=== PATIENT | female | born 1945 | race African-American/Black ===

== ENCOUNTER 2024-02-21 09:19 | Inpatient (IN) | payer MEDICARE, MEDICAID ==
[~2024-02-21] VITALS: Ht 160 cm; Wt 72.6 kg
[2024-02-21] VITALS (12 sets, daily range): BP systolic 92–195; BP diastolic 47–95; PULSE 79–99; RESP 16–32; TEMP 98
[2024-02-21] MEDS ORDERED: NITROGLYCERIN 50MG PREMIX 250 ML IV ONE (09:30)
[2024-02-21] MEDS: FUROSEMIDE 40MG/4ML VIAL IV ONE (09:45)
[2024-02-21] MEDS: NITROGLYCERIN 50MG PREMIX 250 ML IV SCH (09:45)
[2024-02-21 10:29] LABS: CHLORIDE 109 mEq/L (98-107); POTASSIUM 3.4 mEq/L (3.5-5.1); SODIUM 142 mEq/L (136-145)
[2024-02-21 10:30] LABS: CALCIUM 9.1 mg/dL (8.7-10.4); CARBON DIOXIDE 24 mEq/L (21-32)
[2024-02-21 10:35] LABS: CREATININE 0.9 mg/dL (0.6-1.0); GLUCOSE 235 mg/dL (70-105); UREA NITROGEN BLOOD 16 mg/dL (9-23)
[2024-02-21 10:37] LABS: ALANINE AMINOTRANSFERASE 26 IU/L (10-49); ALBUMIN 4.5 g/dL (3.2-4.8); ASPARTATE AMINOTRANSFERASE 30 IU/L (<34); BILIRUBIN TOTAL 0.9 mg/dL (0.1-1.0); PROTEIN TOTAL 7.5 g/dL (6.0-8.3)
[2024-02-21 10:43] LABS: TROPONIN I HIGH SENSITIVITY 46 ng/L (3.0-34)
[2024-02-21 10:51] LABS: BASOPHILS % 0.5 % (0.0-2.0); EOSINOPHILS % 1.6 % (0.0-5.0); HEMATOCRIT. 40.1 % (36.0-48.0); HEMOGLOBIN. 12.7 g/dL (12.0-16.0); LYMPHOCYTES % 32.3 % (20.0-50.0); MEAN CORPUSCULAR HEMOGLOBIN 29.5 pg (28.0-32.0); MEAN CORPUSCULAR HGB CONC 31.7 g/dL (31.0-37.0); MEAN CORPUSCULAR VOLUME 92.8 fL (81.0-99.0); MONOCYTES % 5.6 % (2.0-8.0); RED BLOOD CELL COUNT 4.32 mill/uL (4.2-5.4); RED CELL DISTRIBUTION WIDTH 17.3 % (11.6-14.6); WHITE BLOOD COUNT 10.3 x1000/uL (4.5-11.0)
[2024-02-21 10:54] LABS: DIFFERENTIAL COMMENT 1
[2024-02-21] MEDS: LOSARTAN 25 MG TABLET PO SCH (11:15)
[2024-02-21] MEDS: ASPIRIN 81MG TABLET PO SCH (11:15)
[2024-02-21] MEDS: KCL 20MEQ/100ML PREMIX 100 ML IV ONE (11:17)
[2024-02-21] MEDS: FUROSEMIDE 40MG/4ML VIAL IVP SCH ×2 (11:21→13:17)
[2024-02-21 12:57] LABS: TROPONIN I HIGH SENSITIVITY 94 ng/L (3.0-34)
[2024-02-21] MEDS: ISOSORBIDE DINITRATE 20MG TABLET PO SCH (13:32)
[2024-02-21] MEDS: AMLODIPINE 5MG TABLET PO SCH (13:32)
[2024-02-21] MEDS: HYDRALAZINE HCL 25MG TABLET PO SCH (14:45)
[2024-02-21] MEDS: LOSARTAN 50 MG TABLET PO NR (14:47)
[2024-02-21 15:33] LABS: THYROID STIMULATING HORMONE 1.99 uIU/mL (0.55-4.78)
[2024-02-21] MEDS ORDERED: METF-415 MT (21:39)
[2024-02-21] MEDS ORDERED: FURO-151 MT (21:39)
[2024-02-21] MEDS: ATORVASTATIN CALCIUM 40MG TABLET PO SCH (21:41)
[2024-02-21] MEDS: HYDRALAZINE 20MG/ML VIAL IV PRN (21:42)
[2024-02-21] MEDS: ONDANSETRON HCL 4MG/2ML INJ IV PRN (22:28)
[2024-02-21] MEDS ORDERED: ACETAMINOPHEN 325MG TABLET PO PRN (22:30)
[2024-02-22] VITALS (27 sets, daily range): BP systolic 100–163; BP diastolic 38–74; PULSE 73–100; RESP 10–26; TEMP 97.1–98.4
[2024-02-22 05:06] LABS: CHLORIDE 107 mEq/L (98-107); POTASSIUM 3.4 mEq/L (3.5-5.1); SODIUM 144 mEq/L (136-145)
[2024-02-22 05:07] LABS: CALCIUM 9.4 mg/dL (8.7-10.4)
[2024-02-22 05:12] LABS: CREATININE 0.9 mg/dL (0.6-1.0)
[2024-02-22 05:20] LABS: HEMATOCRIT. 39.4 % (36.0-48.0); MEAN CORPUSCULAR HEMOGLOBIN 29.9 pg (28.0-32.0); MEAN CORPUSCULAR HGB CONC 33.1 g/dL (31.0-37.0); MEAN CORPUSCULAR VOLUME 90.3 fL (81.0-99.0); RED BLOOD CELL COUNT 4.36 mill/uL (4.2-5.4); RED CELL DISTRIBUTION WIDTH 16.3 % (11.6-14.6); WHITE BLOOD COUNT 9.5 x1000/uL (4.5-11.0)
[2024-02-22 05:32] LABS: DIFFERENTIAL COMMENT 1
[2024-02-22] MEDS ORDERED: HYDRALAZINE 20MG/ML VIAL IV PRN (06:30)
[2024-02-22] MEDS: POTASSIUM CHLORIDE 20MEQ TABLET SR PO NR (06:41)
[2024-02-22 08:27] LABS: CARBON DIOXIDE 26 mEq/L (21-32)
[2024-02-22 08:32] LABS: GLUCOSE 137 mg/dL (70-105)
[2024-02-22 08:33] LABS: UREA NITROGEN BLOOD 18 mg/dL (9-23)
[2024-02-22] MEDS: PANTOPRAZOLE SODIUM 40 MG/VIAL IV SCH (08:39)
[2024-02-22] MEDS: LOSARTAN 50 MG TABLET PO SCH (08:41)
[2024-02-22] MEDS: AMLODIPINE 10MG TABLET PO SCH (08:41)
[2024-02-22 10:37] LABS: MEAN PLATELET VOLUME 11.4 fl (7.4-10.4); PLATELET 140 x1000/uL (130-400)
[2024-02-22] MEDS ORDERED: DEXTROSE 50% WATER 50ML SYRINGE IV PRN (11:45)
[2024-02-22] MEDS: INSULIN LISPRO 100 UNITS/ML SUBCUT SCH (12:30)
[2024-02-22] MEDS: BLOOD SUGAR DIAGNOSTIC STRIP TEST SCH (12:30)
[2024-02-22 12:44] LABS: CLARITY URINE CLEAR (CLEAR); COLOR URINE YELLOW (YELLOW); GLUCOSE URINE NEGATIVE (NEGATIVE); KETONES URINE NEGATIVE (NEGATIVE); LEUKOCYTE ESTERASE URINE 3+ (NEGATIVE); NITRITE URINE NEGATIVE (NEGATIVE); OCCULT BLOOD URINE NEGATIVE (NEGATIVE); PH URINE 5.5 (4.5-8.0); PROTEIN URINE NEGATIVE (NEGATIVE); SPECIFIC GRAVITY URINE 1.013 (1.005-1.030); UROBILINOGEN URINE 0.2 E.U./dL (0.2-1.0)
[2024-02-22 13:19] LABS: BACTERIA URINE 1+; RBC URINE 0-2 /hpf (0-2); SQUAMOUS EPITHELIAL CELL URINE 1+ /lpf (RARE/1+); YEAST URINE NONE SEEN
[2024-02-22 13:20] LABS: TRICHOMONAS URINE 1+
[2024-02-22] MEDS: ENOXAPARIN 40MG/0.4ML SYR SUBCUT SCH (18:00)
[2024-02-23] VITALS (7 sets, daily range): BP systolic 140–174; BP diastolic 64–102; PULSE 79–95; RESP 18–20; TEMP 97.7–98.2
[2024-02-23 06:28] LABS: CARBON DIOXIDE 29 mEq/L (21-32); CHLORIDE 106 mEq/L (98-107); POTASSIUM 3.7 mEq/L (3.5-5.1); SODIUM 142 mEq/L (136-145)
[2024-02-23 06:29] LABS: CALCIUM 9.4 mg/dL (8.7-10.4)
[2024-02-23 06:34] LABS: GLUCOSE 138 mg/dL (70-105); UREA NITROGEN BLOOD 19 mg/dL (9-23)
[2024-02-24] VITALS: BP_SYST 119; BP_SYST 158; BP_DIAS 50; BP_DIAS 68; PULSE 82; PULSE 91; RESP 18; TEMP 98.2; TEMP 98.8
[2024-02-24 04:00] VITALS: BP 158/68; PULSE 82; RESP 18; TEMP 98.2
[2024-02-24 08:00] VITALS: BP 166/76; PULSE 88; RESP 18; TEMP 99.5
[2024-02-24] MEDS ORDERED: LIDOCAINE HCL/PF 1% 10 MG/ML 5ML VIAL ONE (08:08)
[2024-02-24] MEDS ORDERED: HEPARIN 1000 UNITS/ML 10ML ONE (08:08)
[2024-02-24] MEDS ORDERED: IODIXANOL 320MG/ML 100 ML BOTTLE IV ONE (08:09)
[2024-02-24] MEDS ORDERED: VERAPAMIL HCL 2.5 MG/1 ML 2ML VIAL IV ONE (08:09)
[2024-02-24] MEDS ORDERED: DIPHENHYDRAMINE 50MG/ML VIAL ONE (09:17)
[2024-02-24] MEDS ORDERED: MIDAZOLAM HCL 2 MG/2 ML VIAL ONE (09:18)
[2024-02-24] MEDS ORDERED: FENTANYL CITRATE/PF 50MCG/ML 2ML VIAL ONE (09:18)
[2024-02-24] MEDS ORDERED: LIDOCAINE HCL 1% 10 MG/ML 10ML VIAL ONE (09:24)
[2024-02-24] MEDS ORDERED: ATROPINE SULFATE 1MG/10ML SYR ONE (10:20)
[2024-02-24] MEDS ORDERED: IODIXANOL 320 MG/ML 150ML BOTTLE IV ONE (10:27)
[2024-02-24] MEDS ORDERED: EPINEPHRINE 0.1MG/ML (1:10,000) 10ML SYR ONE (10:34)
[2024-02-24] MEDS ORDERED: CLOPIDOGREL 75MG TABLET ONE (10:53)
[2024-02-24] MEDS ORDERED: HYDRALAZINE 20MG/ML VIAL ONE (10:53)
[2024-02-24] MEDS ORDERED: LABETALOL 5MG/ML 20ML VIAL IV ONE (10:55)
[2024-02-24] MEDS ORDERED: ACETAMINOPHEN 325MG TABLET PO PRN (11:45)
[2024-02-24] MEDS ORDERED: ATROPINE SULFATE 1MG/10ML SYR IV PRN (11:45)
[2024-02-24] MEDS: SODIUM CHLORIDE 0.45% 500 ML IV SCH (12:04)
[2024-02-24 16:00] VITALS: BP 129/57; PULSE 98; RESP 20; TEMP 98
[2024-02-24 20:10] VITALS: BP 144/67; PULSE 91; RESP 23; TEMP 97
[2024-02-24] MEDS: FUROSEMIDE 40MG/4ML VIAL IVP SCH (21:50)
[2024-02-25 00:10] VITALS: BP 149/71; PULSE 92; RESP 18; TEMP 97.3
[2024-02-25 04:10] VITALS: BP 148/62; PULSE 89; RESP 19; TEMP 97.2
[2024-02-25 08:00] VITALS: BP 171/147; PULSE 95; RESP 20; TEMP 98
[2024-02-25 08:05] LABS: CALCIUM 9.7 mg/dL (8.7-10.4); CARBON DIOXIDE 27 mEq/L (21-32); CHLORIDE 102 mEq/L (98-107); POTASSIUM 3.8 mEq/L (3.5-5.1); SODIUM 140 mEq/L (136-145)
[2024-02-25 08:10] LABS: CREATININE 0.8 mg/dL (0.6-1.0); GLUCOSE 154 mg/dL (70-105)
[2024-02-25 08:11] LABS: UREA NITROGEN BLOOD 18 mg/dL (9-23)
[2024-02-25 08:17] LABS: BASOPHILS % 0.2 % (0.0-2.0); EOSINOPHILS % 0.9 % (0.0-5.0); HEMATOCRIT. 37.6 % (36.0-48.0); HEMOGLOBIN. 12.5 g/dL (12.0-16.0); LYMPHOCYTES % 26.9 % (20.0-50.0); MEAN CORPUSCULAR HGB CONC 33.2 g/dL (31.0-37.0); MEAN CORPUSCULAR VOLUME 90.4 fL (81.0-99.0); MEAN PLATELET VOLUME 11.5 fl (7.4-10.4); PLATELET 154 x1000/uL (130-400); RED BLOOD CELL COUNT 4.16 mill/uL (4.2-5.4); RED CELL DISTRIBUTION WIDTH 16.5 % (11.6-14.6); WHITE BLOOD COUNT 8.6 x1000/uL (4.5-11.0)
[2024-02-25] MEDS: CLOPIDOGREL 75MG TABLET PO SCH (08:51)
[2024-02-25 12:00] VITALS: BP 160/80; PULSE 85; RESP 18; TEMP 98.3
[2024-02-25 16:00] VITALS: BP 145/99; PULSE 85; RESP 20; TEMP 98.3
[2024-02-25 20:00] VITALS: BP 128/87; PULSE 97; RESP 16; TEMP 97
[2024-02-25] MEDS ORDERED: ASPI-1160 PO (21:43)
[2024-02-25] MEDS ORDERED: ISOS20TA8 PO (21:43)
[2024-02-25] MEDS ORDERED: AMLO10TA80 PO (21:43)
[2024-02-25] MEDS ORDERED: FURO-151 MT (21:43)
[2024-02-25] MEDS ORDERED: LOSA50TA41 PO (21:43)
[2024-02-25] MEDS ORDERED: CLOP-31 PO (21:43)
[2024-02-25] MEDS ORDERED: HYDR25TA78 PO (21:43)
[2024-02-25] MEDS ORDERED: LIP40 PO (21:43)
[2024-02-26] VITALS: BP 149/75; PULSE 92; RESP 25; TEMP 97.6
[2024-02-26 04:05] VITALS: BP 152/79; PULSE 91; RESP 14; TEMP 97.5
[2024-02-26 08:00] VITALS: BP 133/70; PULSE 97; RESP 16; TEMP 97.8
[2024-02-26 12:00] VITALS: BP 152/73; PULSE 98; RESP 17; TEMP 98.7
[2024-02-26 15:35] VITALS: BP 133/70; PULSE 97; TEMP 98.3; O2SAT 96
== END 2024-02-26 17:00 | disposition home or self-care (01) | DRG 323 ==
LOC: ER 09:19 → CVICU 10:53 → EDBEDREQ 10:58 → EDBEDREQTM 10:58 → EDBEDREQ 11:01 → 8WST 02-22 13:15 → 3WST 02-24 15:05
PROVIDERS: ADMIT Internal Medicine; ATTEND Internal Medicine
PROC: 5A09357 Assistance with Respiratory Ventilation, Less than 24 Consecutive Hours, Continuous Positive Airway Pressure (ICD-10-PCS; principal; 2024-02-21)
PROC: 02F03ZZ Fragmentation in Coronary Artery, One Artery, Percutaneous Approach (ICD-10-PCS; 2024-02-24)
PROC: 027034Z Dilation of Coronary Artery, One Artery with Drug-eluting Intraluminal Device, Percutaneous Approach (ICD-10-PCS; 2024-02-24)
PROC: 4A023N7 Measurement of Cardiac Sampling and Pressure, Left Heart, Percutaneous Approach (ICD-10-PCS; 2024-02-24)
PROC: B213YZZ Fluoroscopy of Multiple Coronary Artery Bypass Grafts using Other Contrast (ICD-10-PCS; 2024-02-24)
PROC: B41FYZZ Fluoroscopy of Right Lower Extremity Arteries using Other Contrast (ICD-10-PCS; 2024-02-24)
PROC: B210YZZ Fluoroscopy of Single Coronary Artery using Other Contrast (ICD-10-PCS; 2024-02-24)
DX: I21.4 Non-ST elevation (NSTEMI) myocardial infarction (principal); J96.01 Acute respiratory failure with hypoxia; I16.9 Hypertensive crisis, unspecified; I11.0 Hypertensive heart disease with heart failure; I25.10 Atherosclerotic heart disease of native coronary artery without angina pectoris; I50.9 Heart failure, unspecified; Z95.1 Presence of aortocoronary bypass graft; E11.9 Type 2 diabetes mellitus without complications; E78.5 Hyperlipidemia, unspecified; Z82.49 Family history of ischemic heart disease and other diseases of the circulatory system
CPT/HCPCS: 36415; 71045; 80048; 80053; 81003; 82962; 83036; 83605; 83880; 84443; 84484; 85025; 85347; 85379; 92928; 93005; 93306; 93458; 94660; 99291; C1760; C1769; C1887; C1893; J0360; J0461; J1200; J1644; J1650; J1815; J1940; J2250; J2405; J2470; J3010; J3480; J3490; Q9967; C1761

== ENCOUNTER 2024-07-31 22:47 | Inpatient (IN) | payer MEDICARE, MEDICAID ==
[~2024-07-31] VITALS: Ht 160 cm; Wt 81.2 kg
[~2024-07-31 22:47] MED LIST: AMLO10TA80 PO; ASPI-1160 PO; CLOP-31 PO; FURO-151 MT; HYDR25TA78 PO; ISOS20TA8 PO; LIP40 PO; LOSA50TA41 PO; METF-415 MT
[2024-07-31 23:57] LABS: BASOPHILS % 0.3 % (0.0-2.0); DIFFERENTIAL COMMENT 0; EOSINOPHILS % 1.4 % (0.0-5.0); HEMATOCRIT. 38.2 % (36.0-48.0); HEMOGLOBIN. 12.5 g/dL (12.0-16.0); LYMPHOCYTES % 27.4 % (20.0-50.0); MEAN CORPUSCULAR HEMOGLOBIN 30.7 pg (28.0-32.0); MEAN CORPUSCULAR HGB CONC 32.6 g/dL (31.0-37.0); MEAN PLATELET VOLUME 10.8 fl (7.4-10.4); MONOCYTES % 7.5 % (2.0-8.0); NEUTROPHILS % 63.4 % (40.0-76.0); PLATELET 165 x1000/uL (130-400); RED BLOOD CELL COUNT 4.07 mill/uL (4.2-5.4); RED CELL DISTRIBUTION WIDTH 15.8 % (11.6-14.6); WHITE BLOOD COUNT 5.6 x1000/uL (4.5-11.0)
[2024-08-01 00:03] LABS: CHLORIDE 103 mEq/L (98-107); POTASSIUM 3.4 mEq/L (3.5-5.1); SODIUM 140 mEq/L (136-145)
[2024-08-01 00:04] LABS: CALCIUM 9.6 mg/dL (8.7-10.4); CARBON DIOXIDE 27 mEq/L (21-32)
[2024-08-01 00:07] LABS: INR 0.9; PARTIAL THROMBOPLASTIN TIME 29.9 sec (23.4-31.0); PROTHROMBIN TIME 10.3 sec (9.6-11.0)
[2024-08-01 00:09] LABS: GLUCOSE 364 mg/dL (70-105); UREA NITROGEN BLOOD 13 mg/dL (9-23)
[2024-08-01 00:33] LABS: ETHANOL BLOOD < 10 mg/dL (<10); TROPONIN I HIGH SENSITIVITY 85 ng/L (3.0-34)
[2024-08-01] MEDS: NICARDIPINE 40MG/200ML PREMIX 200 ML IV PRN (01:09)
[2024-08-01] MEDS ORDERED: GUAIFENESIN 200MG/10ML SUGAR FREE UDC PO PRN (02:15)
[2024-08-01] MEDS ORDERED: IPRATROPIUM/ALBUTEROL 0.5-3(2.5)MG/3ML NEB HHN PRN (02:15)
[2024-08-01] MEDS ORDERED: DEXTROSE 50% WATER 50ML SYRINGE IV PRN (02:15)
[2024-08-01] MEDS: POTASSIUM CHLORIDE 20MEQ TABLET SR PO NR (02:27)
[2024-08-01] MEDS: ONDANSETRON HCL 4MG/2ML INJ IV PRN (03:26)
[2024-08-01] MEDS: MAGNESIUM/ALUMINUM HYDROXIDE/SIMETHICONE 30ML UDC PO PRN (03:26)
[2024-08-01 03:30] LABS: CLARITY URINE CLEAR (CLEAR); COLOR URINE YELLOW (YELLOW); GLUCOSE URINE 3+ (NEGATIVE); KETONES URINE NEGATIVE (NEGATIVE); LEUKOCYTE ESTERASE URINE 2+ (NEGATIVE); NITRITE URINE NEGATIVE (NEGATIVE); OCCULT BLOOD URINE NEGATIVE (NEGATIVE); PH URINE 7.5 (4.5-8.0); PROTEIN URINE NEGATIVE (NEGATIVE)
[2024-08-01 03:39] LABS: *AMPHETAMINES SCREEN URINE NEGATIVE (NEGATIVE); *BARBITURATES SCREEN URINE NEGATIVE (NEGATIVE); *BENZODIAZEPINES SCREEN URINE NEGATIVE (NEGATIVE); *COCAINE SCREEN URINE NEGATIVE (NEGATIVE); METHADONE URINE SCREEN NEGATIVE (NEGATIVE); OPIATES URINE SCREEN NEGATIVE (NEGATIVE)
[2024-08-01 03:40] LABS: CANNABINOID URINE SCREEN NEGATIVE (NEGATIVE); ECSTASY MDMA SCREEN URINE NEGATIVE (NEGATIVE); PHENCYCLIDINE URINE SCREEN NEGATIVE (NEGATIVE)
[2024-08-01 04:22] LABS: SQUAMOUS EPITHELIAL CELL URINE FEW /lpf (RARE/1+)
[2024-08-01 04:31] LABS: BACTERIA URINE 1+
[2024-08-01 04:32] LABS: TRICHOMONAS URINE FEW
[2024-08-01 04:49] LABS: TRIGLYCERIDE 99 mg/dL (0-150)
[2024-08-01 04:50] LABS: LDL CHOLESTEROL 135 mg/dL (5-100)
[2024-08-01 04:51] LABS: CHOLESTEROL 206 mg/dL (<200); CREATINE KINASE 105 IU/L (34-145); HDL CHOLESTEROL 44 mg/dL (>65); PHOSPHORUS 3.5 mg/dL (2.5-4.9)
[2024-08-01 05:07] LABS: TROPONIN I HIGH SENSITIVITY 397 ng/L (3.0-34)
[2024-08-01] MEDS: PANTOPRAZOLE 40MG DR TABLET PO SCH (09:02)
[2024-08-01] MEDS: INSULIN LISPRO 100 UNITS/ML SUBCUT SCH (09:03)
[2024-08-01] MEDS: BLOOD SUGAR DIAGNOSTIC STRIP TEST SCH (09:04)
[2024-08-01] MEDS: ASPIRIN 81MG TABLET PO SCH (13:00)
[2024-08-01] MEDS: CLOPIDOGREL 75MG TABLET PO SCH (13:00)
[2024-08-01] MEDS: CLONIDINE 0.1MG TABLET PO PRN (16:42)
[2024-08-01 17:26] VITALS: BP 188/71; PULSE 89; RESP 19; TEMP 36.6404
[2024-08-01 19:12] LABS: CREATINE KINASE 94 IU/L (34-145)
[2024-08-01 20:16] LABS: TROPONIN I HIGH SENSITIVITY 561 ng/L (3.0-34)
[2024-08-01] MEDS: ATORVASTATIN CALCIUM 40MG TABLET PO SCH (21:41)
[2024-08-01 22:21] VITALS: BP 142/60; PULSE 71; RESP 18; TEMP 36.33624; O2SAT 97
[2024-08-02] VITALS: BP 145/59; PULSE 69; RESP 18; TEMP 36.55848; O2SAT 100
[2024-08-02] MEDS: POTASSIUM CHLORIDE 20MEQ TABLET SR PO NR (00:08)
[2024-08-02 04:00] VITALS: BP 161/62; PULSE 78; RESP 18; TEMP 36.50292; O2SAT 98
[2024-08-02 06:28] LABS: CHLORIDE 106 mEq/L (98-107); POTASSIUM 3.9 mEq/L (3.5-5.1); SODIUM 144 mEq/L (136-145)
[2024-08-02 06:29] LABS: CALCIUM 9.5 mg/dL (8.7-10.4); CARBON DIOXIDE 29 mEq/L (21-32)
[2024-08-02 06:34] LABS: GLUCOSE 239 mg/dL (70-105); UREA NITROGEN BLOOD 13 mg/dL (9-23)
[2024-08-02 06:36] LABS: T4 FREE 1.49 ng/dL (0.89-1.76); THYROID STIMULATING HORMONE 2.56 uIU/mL (0.55-4.78)
[2024-08-02 06:59] LABS: BASOPHILS % 0.2 % (0.0-2.0); DIFFERENTIAL COMMENT 0; EOSINOPHILS % 2.8 % (0.0-5.0); HEMATOCRIT. 35.7 % (36.0-48.0); HEMOGLOBIN. 11.8 g/dL (12.0-16.0); LYMPHOCYTES % 41.9 % (20.0-50.0); MEAN CORPUSCULAR HEMOGLOBIN 30.8 pg (28.0-32.0); MEAN CORPUSCULAR VOLUME 93.2 fL (81.0-99.0); MEAN PLATELET VOLUME 11.6 fl (7.4-10.4); MONOCYTES % 10.5 % (2.0-8.0); NEUTROPHILS % 44.6 % (40.0-76.0); PLATELET 158 x1000/uL (130-400); RED BLOOD CELL COUNT 3.83 mill/uL (4.2-5.4); WHITE BLOOD COUNT 5.6 x1000/uL (4.5-11.0)
[2024-08-02] MEDS ORDERED: DEXTROSE 50% WATER 50ML SYRINGE IV PRN (15:45)
[2024-08-02] MEDS: BLOOD SUGAR DIAGNOSTIC STRIP TEST SCH (17:38)
[2024-08-02] MEDS: AMLODIPINE 10MG TABLET PO SCH (18:05)
[2024-08-02] MEDS: ISOSORBIDE MONONITRATE 30MG TABLET SR 24HR PO SCH (18:05)
[2024-08-02] MEDS: INSULIN LISPRO 100 UNITS/ML SUBCUT SCH (18:18)
[2024-08-02 20:00] VITALS: BP 145/72; PULSE 81; RESP 18; TEMP 36.114
[2024-08-02] MEDS: METRONIDAZOLE 500MG TABLET PO SCH (21:19)
[2024-08-02] MEDS: INSULIN GLARGINE 100 UNITS/ML SUBCUT SCH (21:35)
[2024-08-03] VITALS (7 sets, daily range): BP systolic 133–180; BP diastolic 56–84; PULSE 74–83; RESP 18; TEMP 36.114–36.55848; O2SAT 98–100
[2024-08-03] MEDS ORDERED: OMEG100017 MT (04:46)
[2024-08-03] MEDS ORDERED: CHOL500051 (04:47)
[2024-08-03] MEDS ORDERED: CHOL10CA2 (04:47)
[2024-08-03 06:54] LABS: CHLORIDE 105 mEq/L (98-107); POTASSIUM 3.6 mEq/L (3.5-5.1); SODIUM 142 mEq/L (136-145)
[2024-08-03 06:55] LABS: CARBON DIOXIDE 28 mEq/L (21-32)
[2024-08-03 06:56] LABS: CALCIUM 9.7 mg/dL (8.7-10.4)
[2024-08-03 07:00] LABS: CREATININE 0.7 mg/dL (0.6-1.0); GLUCOSE 194 mg/dL (70-105)
[2024-08-03 07:01] LABS: UREA NITROGEN BLOOD 14 mg/dL (9-23)
[2024-08-03 07:36] LABS: BASOPHILS % 0.2 % (0.0-2.0); DIFFERENTIAL COMMENT 0; EOSINOPHILS % 2.5 % (0.0-5.0); HEMATOCRIT. 35.4 % (36.0-48.0); HEMOGLOBIN. 11.6 g/dL (12.0-16.0); LYMPHOCYTES % 43.4 % (20.0-50.0); MEAN CORPUSCULAR HEMOGLOBIN 30.3 pg (28.0-32.0); MEAN CORPUSCULAR HGB CONC 32.7 g/dL (31.0-37.0); MEAN CORPUSCULAR VOLUME 92.8 fL (81.0-99.0); MEAN PLATELET VOLUME 11.9 fl (7.4-10.4); MONOCYTES % 9.6 % (2.0-8.0); NEUTROPHILS % 44.3 % (40.0-76.0); PLATELET 169 x1000/uL (130-400); RED BLOOD CELL COUNT 3.81 mill/uL (4.2-5.4); RED CELL DISTRIBUTION WIDTH 15.9 % (11.6-14.6); WHITE BLOOD COUNT 6.4 x1000/uL (4.5-11.0)
[2024-08-03] MEDS: INSULIN LISPRO 100 UNITS/ML SUBCUT SCH (11:40)
[2024-08-03] MEDS ORDERED: IOHEXOL-350 100 ML BOTTLE ONE (12:20)
[2024-08-04] VITALS (22 sets, daily range): BP systolic 105–185; BP diastolic 50–80; PULSE 64–96; RESP 14–30; TEMP 36.114–36.78072; O2SAT 94–99
[2024-08-04 07:03] LABS: BASOPHILS % 0.3 % (0.0-2.0); DIFFERENTIAL COMMENT 0; EOSINOPHILS % 3.1 % (0.0-5.0); HEMATOCRIT. 37.4 % (36.0-48.0); HEMOGLOBIN. 12.1 g/dL (12.0-16.0); LYMPHOCYTES % 39.5 % (20.0-50.0); MEAN CORPUSCULAR HEMOGLOBIN 29.9 pg (28.0-32.0); MEAN CORPUSCULAR HGB CONC 32.2 g/dL (31.0-37.0); MEAN CORPUSCULAR VOLUME 92.7 fL (81.0-99.0); MEAN PLATELET VOLUME 11.6 fl (7.4-10.4); MONOCYTES % 10.4 % (2.0-8.0); NEUTROPHILS % 46.7 % (40.0-76.0); PLATELET 185 x1000/uL (130-400); RED BLOOD CELL COUNT 4.03 mill/uL (4.2-5.4); RED CELL DISTRIBUTION WIDTH 15.6 % (11.6-14.6)
[2024-08-04 07:05] LABS: CHLORIDE 104 mEq/L (98-107); POTASSIUM 3.6 mEq/L (3.5-5.1); SODIUM 141 mEq/L (136-145)
[2024-08-04 07:06] LABS: CALCIUM 9.2 mg/dL (8.7-10.4); CARBON DIOXIDE 27 mEq/L (21-32)
[2024-08-04 07:11] LABS: CREATININE 0.8 mg/dL (0.6-1.0); GLUCOSE 184 mg/dL (70-105); UREA NITROGEN BLOOD 12 mg/dL (9-23)
[2024-08-04] MEDS: FUROSEMIDE 40MG TABLET PO SCH (08:43)
[2024-08-04] MEDS ORDERED: LIDOCAINE HCL 1% 20ML VIAL ONE (10:02)
[2024-08-04] MEDS ORDERED: HEPARIN 1000 UNITS/ML 10ML ONE ×2 (10:02→11:30)
[2024-08-04] MEDS ORDERED: IODIXANOL 320MG/ML 100 ML BOTTLE IV ONE ×3 (10:02→11:42)
[2024-08-04] MEDS ORDERED: DIPHENHYDRAMINE 50MG/ML VIAL ONE (10:19)
[2024-08-04] MEDS ORDERED: FENTANYL CITRATE/PF 50MCG/ML 2ML VIAL ONE (10:20)
[2024-08-04] MEDS ORDERED: MIDAZOLAM HCL 2 MG/2 ML VIAL ONE (10:20)
[2024-08-04] MEDS ORDERED: HYDRALAZINE 20MG/ML VIAL ONE (10:26)
[2024-08-04] MEDS ORDERED: ATROPINE SULFATE 1MG/10ML SYR ONE (11:18)
[2024-08-04] MEDS ORDERED: LABETALOL 5MG/ML 20ML VIAL IV ONE (11:51)
[2024-08-04] MEDS ORDERED: ONDANSETRON HCL 4MG/2ML INJ ONE (11:52)
[2024-08-04] MEDS ORDERED: ATROPINE SULFATE 1MG/10ML SYR IV PRN (12:45)
[2024-08-04] MEDS ORDERED: ACETAMINOPHEN 325MG TABLET PO PRN (12:45)
[2024-08-04 13:59] LABS: TROPONIN I HIGH SENSITIVITY 233 ng/L (3.0-34)
[2024-08-04] MEDS: ENOXAPARIN 80MG/0.8ML SYR SUBCUT SCH (18:00)
[2024-08-04] MEDS: ISOSORBIDE MONONITRATE 60MG TABLET SR 24HR PO SCH (18:29)
[2024-08-04] MEDS: ACETAMINOPHEN 325MG TABLET PO PRN (18:30)
[2024-08-04] MEDS: SODIUM CHLORIDE 0.45% 500 ML IV SCH (19:00)
[2024-08-04] MEDS: CARVEDILOL 6.25 MG TABLET PO SCH (21:46)
[2024-08-05] VITALS (7 sets, daily range): BP systolic 137–178; BP diastolic 59–85; PULSE 7–88; RESP 16–25; TEMP 36.44736–37.05852; O2SAT 94–98
[2024-08-05] MEDS: DOCUSATE SODIUM 100MG CAPSULE PO PRN (06:27)
[2024-08-05 08:33] LABS: CHLORIDE 101 mEq/L (98-107); POTASSIUM 3.7 mEq/L (3.5-5.1); SODIUM 138 mEq/L (136-145)
[2024-08-05 08:34] LABS: CALCIUM 9.8 mg/dL (8.7-10.4); CARBON DIOXIDE 28 mEq/L (21-32)
[2024-08-05 08:38] LABS: BASOPHILS % 0.2 % (0.0-2.0); DIFFERENTIAL COMMENT 0; EOSINOPHILS % 0.3 % (0.0-5.0); HEMATOCRIT. 38.7 % (36.0-48.0); HEMOGLOBIN. 12.6 g/dL (12.0-16.0); LYMPHOCYTES % 17.2 % (20.0-50.0); MEAN CORPUSCULAR HGB CONC 32.6 g/dL (31.0-37.0); MEAN CORPUSCULAR VOLUME 91.9 fL (81.0-99.0); MEAN PLATELET VOLUME 11.4 fl (7.4-10.4); MONOCYTES % 9.2 % (2.0-8.0); NEUTROPHILS % 73.1 % (40.0-76.0); PLATELET 218 x1000/uL (130-400); RED BLOOD CELL COUNT 4.22 mill/uL (4.2-5.4); RED CELL DISTRIBUTION WIDTH 15.6 % (11.6-14.6); WHITE BLOOD COUNT 8.9 x1000/uL (4.5-11.0)
[2024-08-05 08:39] LABS: CREATININE 0.8 mg/dL (0.6-1.0); GLUCOSE 212 mg/dL (70-105)
[2024-08-05 08:40] LABS: UREA NITROGEN BLOOD 16 mg/dL (9-23)
[2024-08-05] MEDS: CARVEDILOL 6.25 MG TABLET PO NR (14:54)
[2024-08-05] MEDS: HYDRALAZINE 20MG/ML VIAL IV PRN (14:54)
[2024-08-05] MEDS: AMLODIPINE 10MG TABLET PO NR (14:55)
[2024-08-05] MEDS: ISOSORBIDE MONONITRATE 60MG TABLET SR 24HR PO NR (14:55)
[2024-08-06] VITALS: BP 132/65; PULSE 86; RESP 20; TEMP 37.11408; O2SAT 96
[2024-08-06 04:00] VITALS: BP 136/59; PULSE 78; RESP 18; TEMP 36.55848; O2SAT 95
[2024-08-06 05:35] VITALS: BP 124/65; PULSE 83; TEMP 98.3; O2SAT 94
[2024-08-06 08:00] VITALS: BP 124/65; PULSE 85; RESP 18; TEMP 36.78072; O2SAT 96
[2024-08-06] MEDS ORDERED: BLOO-1465 MT (10:46)
[2024-08-06] MEDS ORDERED: ISOS30TA91 MT (10:46)
[2024-08-06 12:00] VITALS: BP 122/73; PULSE 81; RESP 20; TEMP 36.6696; TEMP 36.66960; O2SAT 95
[2024-08-06] MEDS ORDERED: CLOP-31 PO (15:54)
[2024-08-06] MEDS ORDERED: ASPI-1160 PO (15:54)
[2024-08-06] MEDS ORDERED: LOSA50TA41 PO (15:55)
[2024-08-06] MEDS ORDERED: COR3 MT (15:56)
[2024-08-06] MEDS ORDERED: INSULIN GLARGINE 100 UNITS/ML SUBCUT SCH (22:00)
== END 2024-08-06 16:08 | disposition home health service (06) | DRG 250 ==
LOC: ER 22:47 → 7EST 08-01 00:52 → EDBEDREQ 08-01 01:00 → EDBEDREQTM 08-01 01:00 → 3WST 08-04 12:15
PROVIDERS: ADMIT Hospitalist; ATTEND Hospitalist
PROC: 4A023N7 Measurement of Cardiac Sampling and Pressure, Left Heart, Percutaneous Approach (ICD-10-PCS; principal; 2024-08-04)
PROC: B2111ZZ Fluoroscopy of Multiple Coronary Arteries using Low Osmolar Contrast (ICD-10-PCS; 2024-08-04)
PROC: B41F1ZZ Fluoroscopy of Right Lower Extremity Arteries using Low Osmolar Contrast (ICD-10-PCS; 2024-08-04)
PROC: 02703ZZ Dilation of Coronary Artery, One Artery, Percutaneous Approach (ICD-10-PCS; 2024-08-04)
DX: I25.119 Atherosclerotic heart disease of native coronary artery with unspecified angina pectoris (principal); I21.A1 Myocardial infarction type 2; I16.1 Hypertensive emergency; E87.6 Hypokalemia; I11.9 Hypertensive heart disease without heart failure; R09.89 Other specified symptoms and signs involving the circulatory and respiratory systems; E88.810 Metabolic syndrome; E78.5 Hyperlipidemia, unspecified; E11.9 Type 2 diabetes mellitus without complications; A59.9 Trichomoniasis, unspecified; K59.00 Constipation, unspecified; H91.93 Unspecified hearing loss, bilateral; Z79.02 Long term (current) use of antithrombotics/antiplatelets; Z79.4 Long term (current) use of insulin; I25.2 Old myocardial infarction; Z95.5 Presence of coronary angioplasty implant and graft; Z79.82 Long term (current) use of aspirin; Z79.84 Long term (current) use of oral hypoglycemic drugs; Z79.899 Other long term (current) drug therapy; Z95.1 Presence of aortocoronary bypass graft
CPT/HCPCS: 36415; 71045; 71275; 80048; 80061; 80305; 80320; 81003; 82550; 82962; 83036; 83735; 83880; 84100; 84439; 84443; 84484; 85025; 85347; 85379; 92920; 93005; 93459; 93970; 97161; 97166; 99291; C1769; C1887; C1893; J0360; J0461; J1200; J1644; J1650; J1815; J2250; J2405; J3010; J3490; Q9967; G0480

== ENCOUNTER 2024-08-23 11:13 | Emergency (ER) | payer MEDICARE, MEDICAID ==
[~2024-08-23] VITALS: Ht 157.5 cm; Wt 72.0 kg
[~2024-08-23 11:13] MED LIST changes: +BLOO-1465 MT; +CHOL10CA2; +CHOL500051; +COR3 MT; -ISOS20TA8 PO; +ISOS30TA91 MT; +OMEG100017 MT
[2024-08-23 11:16] VITALS: O2SAT 96
[2024-08-23 14:24] VITALS: BP 148/70; PULSE 81; RESP 18; TEMP 36.83628; O2SAT 96
== END 2024-08-23 14:25 | disposition home or self-care (01) ==
LOC: ER 11:29
DX: R60.0 Localized edema (principal); I25.2 Old myocardial infarction; I10 Essential (primary) hypertension; E78.00 Pure hypercholesterolemia, unspecified; Z79.899 Other long term (current) drug therapy; Z79.82 Long term (current) use of aspirin
CPT/HCPCS: 99281